=== PATIENT | male | born 1975 | race Caucasian/White ===

== ENCOUNTER 2019-09-19 16:18 | Emergency (ER) | payer BC, SELFPAY ==
[2019-09-19 16:34] VITALS: BP 113/60; PULSE 69; RESP 16; TEMP 37.4; O2SAT 100
--- NOTE | 2019-09-19 17:07 | ED.GENADULT ---
HPI - General Adult General Chief complaint: Eye Problems Stated complaint: left eye fb Time Seen by Provider: 09/19/19 17:07 Source: patient and RN notes reviewed Mode of arrival: ambulatory Limitations: no limitations History of Present Illness HPI narrative: 44-year-old male presents with complains of sensation of foreign body in left eye for 1 day. Irrigation of LT eye without relief. Mac says he was mowing the lawn when something flew into his LT eye. Mild redness, no drainage. Symptoms worsening throughout the day. Exacerbating factor consist of rubbing eye. Relieving factors is closing eyes. Denies vision changes, blurred vision, double vision, or pain of eye with movement. Remains active. The patient reports he have not been diagnosed with COVID-19. The patient reports he is not waiting for the results of a COVID-19 lab test. The patient reports he do not have fever, chills, weakness, fatigue, myalgia, or facial swelling. The patient reports he do not have a new or worsening cough or shortness of breath. Denies chest pain. The patient reports he do not have any rhinorrhea, congestion, sore throat, nausea, vomiting, abdominal pain, and diarrhea. Tolerating po intake well. Denies recent traveling. Denies concerns for COVID-19 or exposures been home since asff-he-dour order except for essential household needs, working, and return home. At this time, patient is not suspected of having COVID-19. Some parts of this dictation were generated by voice recognition software and may contain typographical and/or grammatical inaccuracies. Severity scale (1-10): 9 Related Data Allergies Allergy/AdvReac Type Severity Reaction Status Date / Time No Known Allergies Allergy Unverified 08/24/18 12:24 Review of Systems Review of Systems: Narrative: CONSTITUTIONAL: Denies fever, chills, sweats. EYES: Denies visual changes. Complains of LT eye redness and foreign body sensation. Denies discharge. ENT: Denies rhinorrhea, congestion, sore throat, otalgia. CARDIOVASCULAR: Denies chest pain, palpitations, edema. RESPIRATORY: Denies dyspnea, wheezing, cough. GASTROINTESTINAL: Denies abdominal pain, nausea, vomiting, diarrhea. GENITOURINARY: Denies dysuria, hematuria, abnormal discharge. SKIN: Denies rash or itching. MUSCULOSKELETAL: Denies acute back pain, joint pain, or myalgia. NEUROLOGIC: Denies numbness or focal weakness. PSYCHIATRIC: Denies anxiety or depression. All systems reviewed & are unremarkable except as noted in HPI and below. [facility] Past Medical History Medical History (Updated 09/20/19 @ 00:00 by Sarah Dastephani) No significant past medical history Surgical History Surgical History (Updated 09/19/19 @ 17:31 by EDITH Alfred) History of hernia surgery bilateral inguinal hernia at age 1 Family History Family History (Updated 09/19/19 @ 17:30 by EDITH Alfred) Father , Mac Edouard believes it was prostate or colon but not sure Cancer Mother Diabetes mellitus COPD (chronic obstructive pulmonary disease) Social History Social History (Updated 09/19/19 @ 17:29 by EDITH Alfred) Smoking packs per day: 1 Smoking cigarettes per day: 20.0 Years smoked: 29 Smoking pack-years: 29.00 Smoking status: Current every day smoker Alcohol intake: current Substance use: never Living arrangements: with family Occupation/Education: occupation Gender identity (if verbalized by the patient): Male Comments At time of signature, I have reviewed and agree with nursing past medical, surgical, social, and family history. Please see nursing chart for further information. There is no relevant family history pertinent to the presenting complaint. Exam Narrative: Exam Narrative: GENERAL: This is a well-nourished, well-developed patient, in no apparent distress. HEAD: normocephalic, atraumatic. EYES: PERRL. Sclera clear/white to RT eye only. LT eye sc
== END 2019-09-19 17:28 | disposition home or self-care (01) ==
PROVIDERS: Emergency Provider Nurse Practitioner Family; PCP Internal Medicine
DX: S05.02XA Injury of conjunctiva and corneal abrasion without foreign body, left eye, initial encounter (principal); F17.210 Nicotine dependence, cigarettes, uncomplicated; W22.8XXA Striking against or struck by other objects, initial encounter
CPT/HCPCS: 99213; A9270; G0463

== ENCOUNTER 2020-01-03 15:46 | Emergency (ER) | payer BC, SELFPAY ==
[2020-01-03 15:50] VITALS: BP 113/68; PULSE 74; RESP 18; TEMP 37.5; O2SAT 100
--- NOTE | 2020-01-03 16:34 | ED.URI ---
HPI - URI/Sore Throat General Chief Complaint: Upper Respiratory Infection Stated Complaint: sore throat and ear popping Time Seen by Provider: 01/03/20 16:10 Source: patient and RN notes reviewed Mode of arrival: ambulatory Limitations: no limitations History of Present Illness HPI Narrative: Patient presents today with a 3-day history of sore throat, mild cough, popping the ears. Denies shortness of breath, chest pain, nausea, vomiting, diarrhea, fever. Daughters are ill with similar symptoms, but seem to be improving. They both aggravated 19 testing and were negative. He has been taking Tylenol without relief. Smokes 0.5 packs/day. MD elicited complaint: sore throat Related Data Home Medications Medication Instructions Recorded Confirmed No Home Medications 01/03/20 01/03/20 Allergies Allergy/AdvReac Type Severity Reaction Status Date / Time No Known Allergies Allergy Verified 01/03/20 16:08 Review of Systems Review of Systems: Narrative: CONSTITUTIONAL: Denies body aches, fever, chills, or sweats. EYES: Denies visual changes, redness, or discharge. ENT: Denies rhinorrhea, congestion, or otalgia.+ Sore throat, ear popping CARDIOVASCULAR: Denies chest pain, palpitations, or edema. RESPIRATORY: Denies dyspnea. + Cough GASTROINTESTINAL: Denies abdominal pain, nausea, vomiting, or diarrhea. GENITOURINARY: Denies dysuria or hematuria. SKIN: Denies rash, itching, or wounds. MUSCULOSKELETAL: Denies back pain, joint pain, or myalgia. NEUROLOGIC: Denies headache, numbness, tingling, or weakness. PSYCH: Denies depression or anxiety. [facility] Past Medical History Medical History (Updated 01/03/20 @ 16:36 by Mica Ibrahim, EDITH, ) No significant past medical history Surgical History Surgical History (Updated 09/19/19 @ 17:31 by EDITH Alfred) History of hernia surgery bilateral inguinal hernia at age 1 Family History Family History (Updated 09/19/19 @ 17:30 by EDITH Alfred) Father , Mac Edouard believes it was prostate or colon but not sure Cancer Mother Diabetes mellitus COPD (chronic obstructive pulmonary disease) Social History Social History (Updated 09/19/19 @ 17:29 by EDITH Alfred) Smoking packs per day: 1 Smoking cigarettes per day: 20.0 Years smoked: 29 Smoking pack-years: 29.00 Smoking status: Current every day smoker Alcohol intake: current Substance use: never Gender identity (if verbalized by the patient): Male Comments At time of signature, I have reviewed and agree with nursing past medical, surgical, social and family history unless otherwise noted. Please see nursing chart for further information. There is no relevant family history pertinent to the presenting complaint Exam Narrative: Exam Narrative: GENERAL: Well-appearing, well-nourished, and in no acute distress. HEAD: Normocephalic, atraumatic. EYES: EOMI. No redness or drainage. Conjunctivae normal. ENT: Mucous membranes pink and moist. Nares clear. No rhinorrhea. TMs normal bilaterally. Throat mildly erythematous without edema or exudate. Moderate amount of white postnasal drainage.. Uvula midline. NECK: Normal AROM. Supple. No lymphadenopathy. CHEST: No respiratory distress. Clear to auscultation. HEART: Regular rate and rhythm. No murmur appreciated. Normal peripheral pulses. EXTREMITIES: Normal range of motion. No edema. SKIN: Warm, dry, no rash. Capillary refill normal. Normal skin turgor. NEURO: No focal deficits. Alert and oriented x3. Gait steady. PSYCH: Normal affect. No signs of depression or anxiety. Course Vital Signs Vital signs: Vital Signs Temperature 99.5 F 01/03/20 15:50 Pulse Rate 74 01/03/20 15:50 Respiratory Rate 18 01/03/20 15:50 Blood Pressure 113/68 01/03/20 15:50 Pulse Oximetry 100 01/03/20 15:50 Temperature 99.5 F 01/03/20 15:50 Pulse Rate 74 01/03/20 15:50 Respiratory Rate 18 10
== END 2020-01-03 16:39 | disposition home or self-care (01) ==
PROVIDERS: Emergency Provider Nurse Practitioner; PCP Internal Medicine
DX: J06.9 Acute upper respiratory infection, unspecified (principal); F17.210 Nicotine dependence, cigarettes, uncomplicated
CPT/HCPCS: 87081; 87880; 99213; G0463

== ENCOUNTER 2020-11-03 15:00 | Emergency (ER) | payer BC, SELFPAY ==
--- NOTE | 2020-11-03 15:03 | ED.URI ---
HPI - URI/Sore Throat General Chief Complaint: Upper Respiratory Infection Stated Complaint: Chills, body pain, dizziness Time Seen by Provider: 11/03/20 15:03 Source: patient and RN notes reviewed History of Present Illness HPI Narrative: Patient is a 45-year-old male who presents the urgent care with complaints of body aches, chills and intermittent dizziness. Patient states that he started to feel bad Monday evening and then worse started on Monday. Patient denies of any known fevers, nausea, vomiting, abdominal pain. Denies any known contact with Covid. Patient states that he took Advil approximately 4 hours ago for his body aches. Denies of any other illness in the home. No other acute complaints. No acute distress noted. Patient aware of the plan of care. Some parts of this dictation were generated by voice recognition software and may contain typographical and/or grammatical inaccuracies. Related Data Home Medications Medication Instructions Recorded Confirmed esomeprazole magnesium [Nexium] 40 mg PO DAILY 11/03/20 11/03/20 Allergies Allergy/AdvReac Type Severity Reaction Status Date / Time No Known Allergies Allergy Verified 11/03/20 15:18 Review of Systems Review of Systems: CONSTITUTIONAL: Reports of chills, body aches EYES: Denies visual changes, redness, or discharge. ENT: Denies rhinorrhea, congestion, sore throat, or otalgia. CARDIOVASCULAR: Denies chest pain, palpitations, or edema. RESPIRATORY: Denies cough or dyspnea. GASTROINTESTINAL: Denies abdominal pain, nausea, vomiting, or diarrhea. GENITOURINARY: Denies dysuria or hematuria. SKIN: Denies rash or itching. MUSCULOSKELETAL: Denies back pain, joint pain NEUROLOGIC: Denies headache, numbness, or weakness. Reports of intermittent dizziness All other systems reviewed are negative, except as documented in HPI. [facility] Past Medical History Medical History (Updated 11/03/20 @ 15:28 by EDITH Hernandes) No significant past medical history Surgical History Surgical History (Updated 09/19/19 @ 17:31 by EDITH Alfred) History of hernia surgery bilateral inguinal hernia at age 1 Family History Family History (Updated 09/19/19 @ 17:30 by EDITH Alfred) Father , Mac Edouard believes it was prostate or colon but not sure Cancer Mother Diabetes mellitus COPD (chronic obstructive pulmonary disease) Social History Social History (Updated 09/19/19 @ 17:29 by EDITH Alfred) Smoking packs per day: 1 Smoking cigarettes per day: 20.0 Years smoked: 29 Smoking pack-years: 29.00 Smoking status: Current every day smoker Alcohol intake: current Substance use: never Gender identity (if verbalized by the patient): Male Comments At the time of my signature, I reviewed and agree with the nursing past medical, surgical, social, and family history. There is no relevant family history pertinent to the patient complaint. Exam Narrative: GENERAL: This is a well-nourished, well-developed patient, in no apparent distress. HEAD: normocephalic, atraumatic. EYES: PERRL. Sclera clear/white. Vision is grossly intact. EARS: External ears normal, auditory canals clear and without drainage, TMs normal without perforation. Hearing grossly intact. NOSE: External nose normal with no obvious nasal discharge, nares without redness, no rhinorrhea. THROAT: Mucous membranes moist, posterior pharynx clear. NECK: Neck supple CARDIOVASCULAR: Regular rate and rhythm without murmurs, gallops, or rubs. RESPIRATORY: Clear to auscultation. Breath sounds equal bilaterally. No wheezes, rales, or rhonchi. GASTROINTESTINAL: Abdomen soft, non-tender, nondistended. Bowel sounds are active. SKIN: warm, intact with no suspicious lesions or rash, good texture and turgor. NEURO: awake, alert, and oriented to person, place and time. There were no obvious focal neurologic abnormalities. EXTREMITIES: No clubbing, cyanosis,
[2020-11-03 15:06] VITALS: BP 126/74; PULSE 86; RESP 16; TEMP 39.4; O2SAT 99
[2020-11-03 15:19] VITALS: BP 126/74; PULSE 86; RESP 16; TEMP 39.4; O2SAT 99
== END 2020-11-03 15:41 | disposition home or self-care (01) ==
PROVIDERS: Emergency Provider Nurse Practitioner Family; PCP Internal Medicine
DX: U07.1 COVID-19 (principal); F17.210 Nicotine dependence, cigarettes, uncomplicated
CPT/HCPCS: 81003; 87426; 99213; C9803; G0463